=== PATIENT | female | born 1960 | race Caucasian/White ===

== ENCOUNTER 2016-10-16 21:00 | Emergency (ER) | payer OTHER ==
[~2016-10-16 21:00] MED LIST: ALPRAZOLAM PO; AMBIEN PO; ASPIRIN PO; ASPIRIN81 M1 PO; ATIVAN PO; IMDUR PO; LISINOPRIL PO; LISINOPRIL10 MG PO; NITROSTAT0.4 MG SL; NO MEDICATIONS; ROBAXIN PO; ULTRAM PO; VICODIN 5/500 T1 TAB PO
== END 2016-10-17 00:07 | disposition left against medical advice (07) ==
LOC: CED 21:00
DX: Z53.21 Procedure and treatment not carried out due to patient leaving prior to being seen by health care provider (principal)

== ENCOUNTER 2016-11-02 12:26 | Emergency (ER) | payer OTHER ==
--- NOTE | ~2016-11-02 | EKG ---
PATIENT: SHWETHA DAS UNIT #: [id number] Ventricular Rate: 93 BPM Atrial Rate: 93 BPM P-R Interval: 160 ms QRS Duration: 100 ms Q-T Interval: 380 ms QTC Calculation(Bezet): 472 ms P [place]: 76 degrees Calculated R [place]: 101 degrees Calculated T [place]: 59 degrees Diagnosis Line: Normal sinus rhythm Diagnosis Line: Rightward axis Diagnosis Line: Incomplete right bundle branch block Diagnosis Line: Nonspecific ST abnormality Inferior leads Lateral Diagnosis Line: leads Diagnosis Line: Abnormal ECG Diagnosis Line: When compared with ECG of 20-OCT-2014 01:43, Diagnosis Line: ST no longer depressed in Inferior leads Diagnosis Line: Confirmed by OKSANA MCINTYRE MD ([id number]) on 11/03/2016 Diagnosis Line: 10:02:28 AM INTERPRETING MD: MIGUELINA ÁLVAREZ
== END 2016-11-02 22:00 | disposition left against medical advice (07) ==
LOC: CED 12:26
DX: Z53.21 Procedure and treatment not carried out due to patient leaving prior to being seen by health care provider (principal)
CPT/HCPCS: 93005